=== PATIENT | male | born 1985 | race Caucasian/White ===

== ENCOUNTER 2021-07-25 09:50 | Outpatient (CLI) | payer BC ==
[~2021-07-25 09:50] MED LIST: Magnevist 469MG/ML 20 ML VIAL ONE
== END 2021-07-25 09:51 | disposition home or self-care (01) ==
LOC: CSHMRI 09:50
PROVIDERS: ATTEND Family Medicine
DX: R32 Unspecified urinary incontinence (principal); M51.36 Other intervertebral disc degeneration, lumbar region
CPT/HCPCS: 72158; A9579